=== PATIENT | female | born 1995 | race Caucasian/White ===

== ENCOUNTER 2023-11-01 18:28 | Observation (INO) | payer OTHER, SELFPAY ==
[2023-11-01 18:37] VITALS: BP 122/70; BMI 27.3
== END 2023-11-01 20:06 | disposition home or self-care (01) ==
LOC: LDRP 18:28
PROVIDERS: ADMITTING PHYSICIAN Obstetrics & Gynecology; FAMILY PHYSICIAN Internal Medicine
DX: O36.8130 Decreased fetal movements, third trimester, not applicable or unspecified (principal); Z3A.36 36 weeks gestation of pregnancy; O26.643 Intrahepatic cholestasis of pregnancy, third trimester; K83.1 Obstruction of bile duct
CPT/HCPCS: 76815; G0378

== ENCOUNTER → 2023-11-05 15:50 | Outpatient (REF) | payer OTHER, SELFPAY | LOC: PNTC 15:50 | PROVIDERS: ATTENDING PHYSICIAN Obstetrics & Gynecology | DX: O26.613 Liver and biliary tract disorders in pregnancy, third trimester (principal) | CPT/HCPCS: 36415; 59025; 76816 ==

== ENCOUNTER → 2023-11-12 06:50 | Outpatient (REF) | payer OTHER, SELFPAY | LOC: PNTC 06:50 | PROVIDERS: ATTENDING PHYSICIAN Obstetrics & Gynecology | DX: O99.419 Diseases of the circulatory system complicating pregnancy, unspecified trimester (principal); O26.649 Intrahepatic cholestasis of pregnancy, unspecified trimester | CPT/HCPCS: 59025; 76815 ==

== ENCOUNTER 2023-11-21 10:41 | Inpatient (IN) | payer OTHER, SELFPAY ==
[2023-11-21 11:01] VITALS: BP 124/78; BMI 27.7
[2023-11-21] MEDS: LR 1000 IV (12:09)
[2023-11-21 12:21] LABS: % Basophils 0.3 % (0-2); % Eosinophils 0.8 % (0-6); % Immature Granulocytes 0.4 % (0-0.5); % Lymphocytes 12.3 % (20.5-51.1); % Monocytes 5.1 % (1.7-9.3); % Neutrophils 81.1 % (42.2-75.2); Absolute Eosinophils 0.1 10^3/uL (0-0.7); Absolute Immature Granulocytes 0.1 10^3/uL (0-0.05); Absolute Lymphocytes 1.4 10^3/uL (1.2-3.4); Absolute Monocytes 0.6 10^3/uL (0.1-0.6); Absolute Neutrophils 9.4 10^3/uL (1.4-6.5); Hematocrit 34.7 % (37.0-47.0); Hemoglobin 11.4 g/dL (12.0-16.0); Mean Corp Hgb Conc. 32.9 g/dL (33.0-37.0); Mean Corpuscular Hgb 28.5 pg (27.0-31.0); Mean Corpuscular Volume 86.8 fL (81.0-99.0); Mean Platelet Volume 10.7 fL (7.4-10.4); Nucleated Red Blood Cells % 0 %; Platelet Count 237 10^3/uL (130-400); White Blood Cell Count 11.6 10^3/uL (4.8-10.8)
[2023-11-21] MEDS: CYTOTEC 50 MICROGRAM PO ×2 (19:38→23:41)
[2023-11-22] MEDS: MORPHINE SULFATE 2 MG IV (01:59)
[2023-11-22] MEDS: SUBLIMAZE 100 MCG EPIDURAL (03:33)
[2023-11-22] MEDS: FENTANYL/BUPIVACAINE 100 EPIDURAL ×3 (03:33→19:09)
[2023-11-22] MEDS: PITOCIN 30 UNITS/NSS 500 ML IV (04:32)
[2023-11-22] MEDS: ZOFRAN 4 MG IV ×2 (10:40→17:16)
[2023-11-22] MEDS: LR 1000 IV (10:40)
[2023-11-22] MEDS: ANCEF 10 IV (22:13)
[2023-11-22] MEDS: BICITRA 30 ML PO (22:13)
[2023-11-22] MEDS: TYLENOL 1000 MG PO (22:13)
[2023-11-22] MEDS: ZITHROMAX INFUSION 250 IV (22:18)
[2023-11-23] MEDS: TORADOL 15 MG IV ×4 (05:19→23:00)
[2023-11-23 05:23] LABS: Hematocrit 36.3 % (37.0-47.0); Hemoglobin 11.9 g/dL (12.0-16.0); Mean Corp Hgb Conc. 32.8 g/dL (33.0-37.0); Mean Corpuscular Hgb 28.7 pg (27.0-31.0); Mean Corpuscular Volume 87.5 fL (81.0-99.0); Mean Platelet Volume 10.7 fL (7.4-10.4); Platelet Count 203 10^3/uL (130-400); Red Blood Cell Count 4.15 10^6/uL (4.20-5.40); Red Cell Dist. Width 14.1 % (11.5-14.5); White Blood Cell Count 21.1 10^3/uL (4.8-10.8)
[2023-11-23 14:53] LABS: Syphilis/T. pallidum Ab Reflex Negative (Negative)
[2023-11-23] MEDS: SENOKOT-S 1 TABLET PO (17:07)
[2023-11-24] MEDS: MOTRIN 600 MG PO ×2 (10:33→16:53)
[2023-11-24] MEDS: TYLENOL 650 MG PO (20:14)
[2023-11-25] MEDS: TYLENOL 650 MG PO ×2 (00:25→08:58)
[2023-11-25] MEDS: MOTRIN 600 MG PO ×2 (00:25→08:59)
--- NOTE | 2023-11-25 08:48 | W.DS.TRANS ---
DC Summary - Passenger Representative
-
Discharge Instructions:
Discharge Diagnosis/Procedures Section
Instructions:
Stand-Alone Forms: LDRP Delivery
Changes to Home Medications: No
Discharge Medications:
DC Medications w/original date entered in [facility]
vitamin-ferrous fumarate 28 mg iron-folic acid 800 mcg tablet ( Tablet) 1 tab PO HS Supplement 11/01/23
ferrous sulfate 325 mg (65 mg iron) tablet 325 mg PO HS Supplement 11/21/23
acetaminophen 325 mg tablet 650 mg (2 x 325 mg) PO Q4HPRN PRN mild pain #0 tabs 11/25/23
ibuprofen 600 mg tablet 600 mg PO Q6HPRN PRN cramps #45 tabs 11/25/23
sennosides 8.6 mg-docusate sodium 50 mg tablet (Stool Softener-Stimulant Laxative) 1 tab PO DAILYPRN PRN constipation #0 tabs 11/25/23
Home Medication Changes
Pending Results: No
[2023-11-25] MEDS: SENOKOT-S 1 TABLET PO (09:06)
== END 2023-11-25 11:30 | disposition home or self-care (01) | DRG 787 ==
LOC: LDRP 10:41
PROVIDERS: Obstetrics & Gynecology; ADMITTING PHYSICIAN Obstetrics & Gynecology; FAMILY PHYSICIAN Internal Medicine
PROC: 3E033VJ Introduction of Other Hormone into Peripheral Vein, Percutaneous Approach (ICD-10-PCS; 2023-11-21)
PROC: 3E0DXGC Introduction of Other Therapeutic Substance into Mouth and Pharynx, External Approach (ICD-10-PCS; 2023-11-21)
PROC: 10D00Z1 Extraction of Products of Conception, Low, Open Approach (ICD-10-PCS; 2023-11-23)
PROC: 0UQC7ZZ Repair Cervix, Via Natural or Artificial Opening (ICD-10-PCS; 2023-11-23)
DX: O42.02 Full-term premature rupture of membranes, onset of labor within 24 hours of rupture (principal); O71.3 Obstetric laceration of cervix; Q25.0 Patent ductus arteriosus; Z3A.39 39 weeks gestation of pregnancy; Z37.0 Single live birth; O62.1 Secondary uterine inertia; O69.81X0 Labor and delivery complicated by cord around neck, without compression, not applicable or unspecified; Z82.49 Family history of ischemic heart disease and other diseases of the circulatory system
CPT/HCPCS: 88307; 85025; 85027; 86780; 86850; 86900; 86901

== ENCOUNTER 2025-07-24 22:08 | Emergency (ER) | payer OTHER, SELFPAY ==
[2025-07-24 22:12] VITALS: BP 132/100
[2025-07-24 22:34] LABS: Hematocrit 44.2 % (37.0-47.0); Hemoglobin 14.0 g/dL (12.0-16.0); Mean Corp Hgb Conc. 31.7 g/dL (33.0-37.0); Mean Corpuscular Volume 82.6 fL (81.0-99.0); Nucleated Red Blood Cells % 0 %; Platelet Count 295 10^3/uL (130-400); Red Cell Dist. Width 13.4 % (11.5-14.5)
[2025-07-24 22:47] LABS: COVID-19 Antigen Negative (Negative)
[2025-07-24 22:55] LABS: HCG, Serum Qualitative Screen Negative
[2025-07-24 22:59] LABS: ALT (SGPT) 20 U/L (0-35); AST (SGOT) 25 U/L (14-36); Albumin 4.4 g/dl (3.5-5.0); Alkaline Phosphatase 62 U/L (38-126); Blood Urea Nitrogen 17 mg/dl (7-17); Calcium 9.2 mg/dl (8.4-10.2); Carbon Dioxide 23 mmol/L (22-30); Chloride 104 mmol/L (98-107); Glucose 135 mg/dl (70-99); Potassium 4.3 mmol/L (3.5-5.1); Sodium 137 mmol/L (135-145); Total Protein 7.5 g/dl (6.3-8.2); eGFR > 60.00
[2025-07-24 23:03] VITALS: BP 126/81
--- NOTE | 2025-07-24 23:09 | ED.GENMED ---
History of Present Illness
General
Chief Complaint: Breathing Problem
Source: patient
Exam Limitations: none
Time Seen by Provider: 07/24/25 22:58
History of Present Illness
History of Present Illness:
30yoF with history of asthma presenting for evaluation of vomiting. She woke up this morning and was experiencing diarrhea. She then subsequently developed nausea and vomiting. She has not had a bowel movement since this morning but continues to
have uncontrolled vomiting. She is unable to tolerate any p.o. intake. She also reports sharp pleuritic chest pain and is feeling very dehydrated. She had a fever of 101.2 earlier today although was afebrile on arrival. She denies any abdominal
pain, hematemesis, hematochezia. No sick contacts, recent travel, or suspicious food intake.
Past History
Past History
ED Past Medical History: None
ED Past Surgical History: None
Social History
Personal: Single
Phy Exam
General Physical Exam
General Presentation: well appearing and no apparent distress
General Skin: warm and dry
General Habitus: normal
General Mental: alert
ENT Exam
ENT Exam: normocephalic
Cardiovascular Exam
Cardiovascular Exam: no edema, no murmur and tachycardia
Pulmonary Exam
Pulmonary Exam: lungs clear, no respiratory distress, no rales, no crackles, no rhonchi and no wheezing
Gastrointestinal Exam
Gastrointestinal Exam: non tender, soft and non distended
Neurological Exam
Neurological Exam: alert
[place] Coma Scale
Eye Opening: Spontaneous
Verbal Response: Oriented
Motor Response: Obeys Commands
GCS Total Score: 15
Skin Exam
Skin Exam: normal color and warm/dry
Psychiatric Exam
Psychiatric Exam: normal mood/affect
Course
Orders/Labs/Results
Orders:
Orders
07/24/25 22:17
Electrocardiogram (*1) Urgent
Reason for Study: Bradycardia / Tachycardia
07/24/25 22:18
EKG- Treatment ONCE
07/24/25 22:25
COVID-19 Antigen Urgent
Source: Nasal Swab
Complete Blood Count/With Diff Urgent
Comprehensive Metabolic Panel Urgent
HCG, Serum Qualitative Screen Urgent
Comment: ADD ON
Influenza A+B Rapid Molecular Urgent
CYNDIE Source: Nasal Swab
Specimen Description:
07/24/25 22:28
Add On- LAB Urgent
Tests Added?: hcg qual
07/24/25 23:09
Cardiac Monitoring- Treatment ONCE
0.9% Sodium Chloride 1000 ml [Nss] 1,000 ml IV BOLUS
CR Chest - 2 Views Urgent
Comment:
Reason For Exam: CP
07/24/25 23:29
D-Dimer Urgent
Troponin I Urgent
07/25/25 00:14
CT Chest PE Study Urgent
Comment:
Reason For Exam: Chest pain, SOB, elevated D-dimer
07/25/25 00:22
Ondansetron Injectable [Zofran] 4 mg .ROUTE .STK-MED ONE
07/25/25 00:23
Ondansetron Injectable [Zofran] 4 mg IV NOW STA
07/25/25 01:30
Electrocardiogram (*1) Urgent
Reason for Study: Chest Pain
EKG- Treatment ONCE
07/25/25 01:37
Troponin I Urgent
07/25/25 02:31
0.9% Sodium Chloride 1000 ml [Nss] 1,000 ml IV BOLUS
Abnormal Lab Results
07/24/25 07/24/25
22:25 23:29
MCH 26.2 L pg
(27.0-31.0)
MCHC 31.7 L g/dL
(33.0-37.0)
Absolute Neuts (auto) 7.3 H 10^3/uL
(1.4-6.5)
Absolute Lymphs (auto) 0.6 L 10^3/uL
(1.2-3.4)
Neutrophils % 87.2 H %
(42.2-75.2)
Lymphocytes % 6.8 L %
(20.5-51.1)
D-Dimer 1.35 H ug/mlFEU
(0.00-0.50)
Glucose 135 H mg/dl
(70-99)
07/24/25 22:25
07/24/25 22:25
Vital Signs
Initial and Last Documented VS:
Initial Vital Signs
Temp Pulse Resp BP Pulse Ox
98.9 F 138 20 132/100 97
07/24/25 22:12 07/24/25 22:12 07/24/25 22:12 07/24/25 22:12 07/24/25 22:12
Last Documented Vital Signs
Temp Pulse Resp BP Pulse Ox
98.9 F 109 18 105/66 97
07/24/25 22:12 07/25/25 03:03 07/25/25 03:03 07/25/25 03:03 07/25/25 03:03
MDM/Problems Addressed
Differential Diagnosis Includes:
30yoF here with n/v/d that began this morning. Also having pleuritic chest pain and is tachycardic to 138 on arrival. Triage EKG shows sinus tachycardia. Abdominal exam benign and lungs CTA. Differential diagnosis includes: Gastroenteritis,
dehydration, musculoskeletal chest pain from vomiting, consider PE
Initial ED plan: Workup initiated in triage. Labs overall unremarkable including normal renal function and electrolytes. EKG shows NST with nonspecific ST changes. Troponin within normal limits. Will check D-dimer and chest x-ray. IV Zofran and
fluid bolus for symptoms.
*Pulse Oximetry
SaO2: 100
Oxygen Mode of Delivery: Room air
Patient hypoxic: no
*EKG
Interpreted by ED Provider?: Yes
EKG Intrepretation Date: 07/24/25
Heart Rate: 116
Rate: tachycardiac
Rhythm: sinus
[place]: normal axis
Interval: normal interval
QRS Pattern: normal QRS
Ischemia: non-specific ST changes
*Critical Care Note
Total Time (30-74mins, 75-104mins- exclusive of procedures): Not Applicable
Update Note
Update Note:
D-dimer elevated and CTA chest subsequently ordered. Preliminary [facility]ology report is negative for pulmonary embolism. There is a subtle subendocardial hypoattenuation within the left ventricle which may be artifact however correlate for any
signs of acute myocardial infarction. Patient otherwise healthy without any cardiac risk factors. Repeat EKG and troponin performed for completeness. EKG unchanged and troponin remains undetectable. Patient able to tolerate p.o. intake and is
feeling improved on reassessment. Heart rate improved with IV fluids. No indication for hospitalization. Imaging also shows a 1 cm AV malformation within the right lower lobe. Patient informed of this finding and was given contact information
for both pulmonology and thoracic surgery. ED return precautions reviewed and she was discharged in stable condition.
ED Attending Note
-
Portions of this chart may have been created with voice recognition software.� Occasional wrong word or��sound alike� substitutions may have occurred due to the inherent limitations of voice recognition software.
Discharge Plan
Departure
Patient Disposition: Home (Routine Discharge)
Date of Disposition: 07/25/25
Time of Disposition: 02:58
Patient with high blood pressure during this ER visit?: No
Discharge Problem:
Nausea, vomiting, and diarrhea, Pleuritic chest pain, Pulmonary arteriovenous malformation
Instructions: Nausea and vomiting in adults - ED (DC)
Prescriptions:
New
ondansetron 4 mg tablet,disintegrating
4 mg PO Q6H PRN (Reason: nausea and vomiting) Qty: 20 0RF
No Action
vit-iron fum-folic ac [ Tablet] 28 mg iron- 800 mcg Tablet
1 tab PO HS
ferrous sulfate 325 mg (65 mg iron) Tablet
325 mg PO HS
acetaminophen 325 mg Tablet
650 mg PO Q4HPRN PRN (Reason: mild pain) Qty: 0 0RF
sennosides-docusate sodium [Stool Softener-Stimulant Laxat] 8.6-50 mg Tablet
1 tab PO DAILYPRN PRN (Reason: constipation) Qty: 0 0RF
ibuprofen 600 mg Tablet
600 mg PO Q6HPRN PRN (Reason: cramps) Qty: 45 0RF
Referrals:
Mesfin Sanchez MD [Active, Pulmonary Medicine]
Danelle Ramirez MD [Family Provider]
Juve Philippe MD [Active, Cardiac Surgery]
Activity Restrictions/Additional Instructions:
Take Zofran as needed for nausea. Drink plenty of fluids and eat a bland diet (bananas, rice, applesauce, toast).
An arteriovenous malformation was seen incidentally in your right lower lung on today's CT scan. Please call on Sunday to schedule a follow-up appointment with pulmonology and thoracic surgery regarding this.
Return to the ER with any new or worsening symptoms including if you are unable to keep down any fluids.
Interventions
Interventions:
*Risk Screen - Suicide Last Done: 07/24/25 22:12
*General Assessment Last Done: 07/24/25 22:12
*Neglect/Abuse Screening Last Done: 07/24/25 22:12
*ED COVID-19 Vaccine History Last Done: 07/24/25 22:12
*ED Influenza Vaccine History Last Done: 07/24/25 22:12
[facility] Risk Assessment Tool Last Done: 07/24/25 23:27
*Nursing Disposition Last Done: 07/25/25 03:13
ED- Cardiac Assessment Last Done: 07/24/25 23:10
ED- Pulmonary Assessment Last Done: 07/24/25 23:10
Discharge Date and Time
Discharge Date/Time: 07/25/25 03:18
Print Language: BURKIN[place]
[2025-07-24] MEDS: NSS 1000 IV (23:12)
[2025-07-24 23:52] LABS: D-Dimer 1.35 ug/mlFEU (0.00-0.50)
[2025-07-25 00:07] LABS: Troponin I < 0.012 ng/ml
[2025-07-25 00:17] VITALS: BP 115/59
[2025-07-25] MEDS: ZOFRAN 4 MG IV (00:24)
[2025-07-25 01:36] VITALS: BP 113/73
[2025-07-25 02:00] VITALS: BP 115/81
[2025-07-25 02:16] LABS: Troponin I < 0.012 ng/ml
[2025-07-25 03:03] VITALS: BP 105/66
== END 2025-07-25 03:18 | disposition home or self-care (01) ==
LOC: EMR 22:08
PROVIDERS: Physician Assistant; EMERGENCY PHYSICIAN Emergency Medicine; FAMILY PHYSICIAN Internal Medicine
DX: R11.2 Nausea with vomiting, unspecified (principal); R19.7 Diarrhea, unspecified; R07.81 Pleurodynia; Q25.72 Congenital pulmonary arteriovenous malformation
CPT/HCPCS: 99284; 96374; 96361; 71046; 71275; 80053; 84484; 84703; 85025; 85379; 87502; 87811; 93005; Q9967